=== PATIENT | male | born 1980 | race Caucasian/White ===

== ENCOUNTER 2018-12-13 07:33 | Emergency (ER) | payer OTHER, SELFPAY ==
[2018-12-13 07:41] VITALS: BP 122/82; PULSE 59; RESP 16; TEMP 36.7; O2SAT 98
--- NOTE | 2018-12-13 08:00 | W.ED.GENAD ---
Discharge Plan Disposition Patient Disposition: HOME Condition: Fair Discharge Details Chief Complaint: EyeProblem Clinical Impression: Foreign body in eye Primary Care Provider: Sally,Local ED Provider: Jannie Padilla Home Meds and New Rx's Prescriptions: No Action No Known Home Meds RF: 0 Discharge Instructions Instructions: Erythromycin (Into the eye), Eye Foreign Body (ED) Additional Instructions: You have a corneal abrasion. Do not replace your contacts until advised by your rescue worker, instead, please use glasses. Please call your rescue worker today to schedule appointment for Monday, . Continue to use the erythromycin ointment, 4 times daily into the right eye. If you develop any new or worsening symptoms please seek care urgently once again Discharge Data Discharge Date/Time-TO BE ENTERED AT DEPARTURE: 12/13/18 08:43 Medical Decision Making Patient is a 38-year-old male presenting today with chief complaint of foreign body in right eye. Reports that around 0300 this morning he noted itchiness in the right eye. He was wearing contacts at that time. He reports that he then took out the contact of the affected eye and noted a small corner of the contact to be missing. He reports that when he came to work today, patient was at the hospital, he use the eye wash to flush out the eye. Despite this, he continues to have a persistent foreign body sensation. States that his vision is slightly blurred but attributes this to not having the contact in the right eye. He continues to wear the contact in the left. States that the discomfort is minimal but irritating. Use of fluoroscopy seen to evaluate the eye, everted the eyelid, examined with slit-lamp as well as loops was unable to identify any foreign body. However, corneal abrasion was noted along the medial aspect of the right eye at the 3 o'clock position. Advised that this may be what is causing the foreign body sensation. Patient does receive regular eye care and [facility], advised that he contact them and be seen in the next 48 hours for reevaluation. We discussed new/worsening symptoms when to seek care urgently once again. Advised against the use of contacts and advised that he continue to use his glasses. Erythromycin ointment was instilled by nursing staff and teaching was completed as the patient is able to continue with this at home. He was discharged home with the remaining tube of the rectum ice and ointment extra cheeses 4 times daily. All of his questions and concerns were addressed and he is in agreement this plan HPI General Mode of arrival: ambulatory. Date/Time Provider Initiated Documentation: 12/13/18 07:59. Limitations to Documentation: no limitations. Information obtained by: patient and RN notes reviewed. History of Present Illness 38 year old M presents to the emergency department with the chief complaint of right eye FB, described as mild, Quality is described as aching, and is localized to the eyes. Patient reports no radiation. Patient started experiencing this hour(s) (0300) and it has been constant. No relieving factors improve symptom(s), No exacerbating factors reported . Patient notes no other symptoms.. Patient did receive the following treatments prior to arrival, other (washed at eye station) Related Data Home Medications Medication Instructions Recorded Confirmed Unknown [No Known Home Meds] 12/13/18 12/13/18 Allergies Allergy/AdvReac Type Severity Reaction Status Date / Time No Known Allergies Allergy Unverified 12/13/18 07:44 General Stated Complaint: EyeProblem ANTWAN: 5 Review of Systems Constitutional Reports as per HPI, Denies chills and Denies fever(s) Eyes Reports as per HPI, Reports blurry vision (states typical for lack of contact lens), Denies change in vision, Denies floaters, Reports irritation, Denies loss of peripheral vision, Denies loss of vision and Reports eye pain Integumentary/Breasts Denies rash, Denies skin pain, Denies skin swelling and Denies wounds Neurologic Denies loss of vision PFSH Social History Smoking/Tobacco Use Status: Never Exam Const General: cooperative, healthy appearing, comfortable, no acute distress, well developed and well groomed Nutritional Appearance: average body habitus and well nourished Orientation: alert and awake HENMT Head: normal to inspection Ears: hearing grossly normal bilaterally Face and sinus: normal facial exam Eyes General: appearance normal, both eyes and all related structures Visual Raza: normal visual raza by confrontation Alignment and Position: alignment normal Periorbital: periorbital findings normal Eyelids: eyelids normal Cornea: corneas abnormal on the right fluorescein used and abrasion at the following clock position (3) and fluorescein used Pupils: PERRL EOM: EOM intact bilaterally Resp Effort & Inspection: normal respiratory effort and able to speak in complete sentences Skin General skin exam: no rashes or lesions noted Neuro General: alert and awake Cognition: normal cognition Speech: speech normal Gait: normal gait Psych Appearance: grossly normal and well kempt Mental Status: mental status grossly normal Speech and Movement: speech and movement normal Course Vital Signs Temperature 36.7 C 12/13/18 07:41 Pulse 59 L 12/13/18 07:41 Respiratory Rate 16 12/13/18 07:41 Blood Pressure 122/82 12/13/18 07:41 Pulse Oximetry 98 12/13/18 07:41 Temperature 36.7 C 12/13/18 07:41 Temperature Source Skin 12/13/18 07:41 Pulse 59 L 12/13/18 07:41 Respiratory Rate 16 12/13/18 07:41 Respiratory Effort Non-Labored 12/13/18 07:41 Blood Pressure 122/82 12/13/18 07:41 Blood Pressure Position Sitting 12/13/18 07:41 Pulse Oximetry 98 12/13/18 07:41 Oxygen Delivery Method Room Air 12/13/18 07:41 Oxygen Flow Rate 0 12/13/18 07:41 Pain Level 0 12/13/18 07:41
--- NOTE | 2018-12-13 08:08 | ED.GENADUL_ITS ---
Discharge Plan Disposition Patient Disposition: HOME Condition: Fair Discharge Details Chief Complaint: EyeProblem Clinical Impression: Foreign body in eye Primary Care Provider: SallyLocal ED Provider: Jannie Padilla Home Meds and New Rx's Prescriptions: No Action No Known Home Meds RF: 0 Discharge Instructions Instructions: Erythromycin (Into the eye), Eye Foreign Body (ED) Additional Instructions: You have a corneal abrasion. Do not replace your contacts until advised by your natural resources professor, instead, please use glasses. Please call your natural resources professor today to schedule appointment for Monday, . Continue to use the erythromycin ointment, 4 times daily into the right eye. If you develop any new or worsening symptoms please seek care urgently once a gain Discharge Data Discharge Date/Time-TO BE ENTERED AT DEPARTURE: 12/13/18 08:43 Medical Decision Making Patient is a 38-year-old male presenting today with chief complaint of foreign body in right eye. Reports that around 0300 this morning he noted itchiness in the right eye. He was wearing contacts at that time. He reports that he then took out the contact of the affected eye and noted a small corner of the contact to be missing. He reports that when he came to work today, patient was at the hospital, he use the eye wash to flush out the eye. Despite this, he continues to have a persistent foreign body sensation. States that his vision is slightly blurred but attributes this to not having the contact in the right eye. He continues to wear the contact in the left. States that the discomfort is minimal but irritating. Use of fluoroscopy seen to evaluate the eye, everted the eyelid, examined with slit-lamp as well as loops was unable to identify any foreign body. However, corneal abrasion was noted along the medial aspect of the right eye at the 3 o'clock position. Advised that this may be what is causing the foreign body sensation. Patient does receive regular eye care and [facility], advised that he contact them and be seen in the next 48 hours for reevaluation. We discussed new/worsening symptoms when to seek care urgently once again. Advised against the use of contacts and advised that he continue to use his glasses. Erythromycin ointment was instilled by nursing staff and teaching was completed as the patient is able to continue with this at home. He was discharged home with the remaining tube of the rectum ice and ointment extra cheeses 4 times daily. All of his questions and concerns were addressed and he is in agreement this plan HPI General Mode of arrival: ambulatory . Date/Time Provider Initiated Documentation: 12/13/18 07:59 . Limitations to Documentation: no limitations . Information obtained by: patient and RN notes reviewed . History of Present Illness 38 year old M presents to the emergency department with the chief complaint of right eye FB, described as mild, Quality is described as aching, and is localized to the eyes. Patient reports no radiation. Patient started experiencing this hour(s) (0300) and it has been constant. No relieving factors improve symptom(s), No exacerbating factors reported . Patient notes no other symptoms.. Patient did receive the following treatments prior to arrival, other (washed at eye station) Related Data Home Medications Medication Instructions Recorded Confirmed Unknown [No Known Home Meds] 12/13/18 12/13/18 Allergies Allergy/AdvReac Type Severity Reaction Status Date / Time No Known Allergies Allergy Unverified 12/13/18 07:44 General Stated Complaint: EyeProblem ANTWAN: 5 Review of Systems Constitutional Reports as per HPI, Denies chills and Denies fever(s) Eyes Reports as per HPI, Reports blurry vision (states typical for lack of contact lens), Denies change in vision, Denies floaters, Reports irritation, Denies loss of peripheral vision, Denies loss of vision and Reports eye pain Integumentary/Breasts Denies rash, Denies skin pain, Denies skin swelling and Denies wounds Neurologic Denies loss of vision PFSH Social History Smoking/Tobacco Use Status: Never Exam Const General: cooperative, healthy appearing, comfortable, no acute distress, well developed and well groomed Nutritional Appearance: average body habitus and well nourished Orientation: alert and awake HENMT Head: normal to inspection Ears: hearing grossly normal bilaterally Face and sinus: normal facial exam Eyes General: appearance normal, both eyes and all related structures Visual Raza: normal visual raza by confrontation Alignment and Position: alignment normal Periorbital: periorbital findings normal Eyelids: eyelids normal Cornea: corneas abnormal on the right fluorescein used and abrasion at the following clock position (3) and fluorescein used Pupils: PERRL EOM: EOM intact bilaterally Resp Effort & Inspection: normal respiratory effort and able to speak in complete sentences Skin General skin exam: no rashes or lesions noted Neuro General: alert and awake Cognition: normal cognition Speech: speech normal Gait: normal gait Psych Appearance: grossly normal and well kempt Mental Status: mental status grossly normal Speech and Movement: speech and movement normal Course Vital Signs Temperature 36.7 C 12/13/18 07:41 Pulse 59 L 12/13/18 07:41 Respiratory Rate 16 12/13/18 07:41 Blood Pressure 122/82 12/13/18 07:41 Pulse Oximetry 98 12/13/18 07:41 Temperature 36.7 C 12/13/18 07:41 Temperature Source Skin 12/13/18 07:41 Pulse 59 L 12/13/18 07:41 Respiratory Rate 16 12/13/18 07:41 Respiratory Effort Non-Labored 12/13/18 07:41 Blood Pressure 122/82 12/13/18 07:41 Blood Pressure Position Sitting 12/13/18 07:41 Pulse Oximetry 98 12/13/18 07:41 Oxygen Delivery Method Room Air 12/13/18 07:41 Oxygen Flow Rate 0 12/13/18 07:41 Pain Level 0 12/13/18 07:41
[2018-12-13] MEDS: Fluorescein STRIPS 100/BOX 1 MG OP (08:20)
[2018-12-13] MEDS: Tetracaine 0.5% 4 ML BTL OP (08:20)
[2018-12-13] MEDS: Erythromycin Ophth Oint 3.5 GM TUBE OD (08:40)
== END 2018-12-13 08:43 | disposition home or self-care (01) ==
LOC: ER 08:49
PROVIDERS: Emergency Provider Physician Assistant
DX: S05.01XA Injury of conjunctiva and corneal abrasion without foreign body, right eye, initial encounter (principal); X58.XXXA Exposure to other specified factors, initial encounter
CPT/HCPCS: 99283